=== PATIENT | female | born 1980 | race Caucasian/White ===

== ENCOUNTER 2019-08-26 01:48 | Day surgery (SDC) | payer OTHER, SELFPAY ==
[2019-08-21 09:41] VITALS: BMI 33.3
--- NOTE | 2019-08-26 08:34 | WPDANESEPPF ---
Anes - Initial Pre Proc Eval Procedure: Operation Date: 08/26/19 13:30 Proposed Procedures p Excision Right Axillary Mass - Luis Eduardo Martinez DO Date/Time: 08/26/19 08:34 Surgeon: Luis Eduardo Martinez DO Pre Op Diagnosis: 2 cm Right Axillary Mass Patient Data Age: 39 Gender: F Height: 1.65 m Weight: 90.72 kg Allergies Allergy/AdvReac Type Severity Reaction Status Date / Time sulfamethoxazole Allergy Intermediate HIVES Verified 08/23/19 14:15 surgical glue Allergy Severe swelling, Uncoded 08/23/19 14:15 rash, itching Home Medications Medication Instructions Recorded Confirmed Type No Home Medications 08/06/19 08/23/19 History Patient hx anesthesia problems: none Family hx anesthesia problems: none PMFSH Past Medical History Medical History (Updated 08/26/19 @ 08:35 by Anmol Caldwell MD) Mass of right axilla Migraine Obesity Surgical History Surgical History S/P S/P carpal tunnel release S/P hernia repair S/P laminectomy total disc arthroplasty ant. second level, cervical 2016 S/P tonsillectomy Social History Social History Smoking status: Never smoker Alcohol intake: current Anes - Eval Final PreProcedure Day of Procedure 08/26/19 08:34 Patient weight: obese Heart: regular rate and rhythm Lungs: clear to auscultation and normal air movement Airway: Mallampati scale class II Neurological: alert and oriented Last oral intake: >/= 8 hours ASA classification: II Emergent: no Anesthetic plan: proceed Anesthesia type and monitoring: general ETT Informed Consent: The patient's anesthetic plan and its attendant risks and benefits were discussed with the patient/family/POA. Questions were solicited and answers provided to the satisfaction of the patient/family/POA.
[2019-08-26] MEDS: LACTATED RINGERS 1,000 ML 30 ML IV CONT (12:20)
[2019-08-26 12:23] VITALS: BP 174/81; PULSE 82; RESP 20; TEMP 36.9; O2SAT 100
--- NOTE | 2019-08-26 13:36 | WPDHPUPDATE1 ---
History and Physical Update Update Date/Time: 08/26/19 13:36 History and Physical has been reviewed, including an updated exam of the patient. There are NO changes in the patient's condition. Risks, benefits, and alternatives have been discussed and questions answered. Patient agrees to proceed with procedure.
[2019-08-26] MEDS: ceFAZolin 2 GM/D5W 50 ML 2 GM/50 ML BAG IVPB (14:28)
[2019-08-26] MEDS: BUPIVACAINE/EPINEPHRINE 0.5% 30 ML VIAL 10 ML INFILTRATE (14:30)
--- NOTE | 2019-08-26 14:37 | P.OP_ITS ---
Procedure Note - Detailed Date of procedure: 08/26/19 Pre-op diagnosis: 2 cm Right Axillary Mass Post-op diagnosis: same Procedure performed: Excision 2cm right axillary mass Description of procedure: * Procedure as well as risks, benefits, and alternatives were discussed with the patient. Written consent was obtained and placed in chart prior to procedure. Time-out was done to confirm patient and procedure. IV sedation was then administered by the Anesthesia Department. Her right axillary region was prepped and draped sterile fashion using chlorhexidine prep. 1% lidocaine with epinephrine was infiltrated directly over the area of mass. A 3 cm incision was made over the mass in the right axilla using a 15 blade scalpel. Electrocautery was used for hemostasis and for careful dissection through the subcutaneous tissue. Superficial within the axillary contents, there appeared to be a lipoma that was corresponding to the area of the mass. This mass was carefully freed up using electrocautery and excised completely. The wound bed was then inspected and no further residual mass was noted. Hemostasis appeared adequate. The skin was then reapproximated using 4 0 nylon simple interrupted sutures. 4 x 4 gauze and Medipore tape were then applied. The patient was then awakened from anesthesia and transferred to recovery. Anesthesia: MAC and local (1% lidocaine with epi) Surgeon: Luis Eduardo Martinez DO Estimated blood loss (mL): 2 Pathology: yes (2 cm right axillary mass) Complications: No immediate complications Condition: stable Disposition: same day Findings: This is a 39-year-old woman who presented with a lump in her right axilla for the past several months. She states that this has changed in size, and it does cause intermittent pain and discomfort. She was placed on antibiotics, but the mass did not change in size. She has no wound openings or history of drainage from the area. A soft superficial subcutaneous mass was noted on exam. Discussions were made with the patient about treatment options, and decision was made to proceed with excision of 2 cm right axillary mass. 2 cm right axillary mass was excised. The mass appeared to be a lipoma within the superficial subcutaneous space. There did not appear to be any deeper masses or any lymphadenopathy. There is no cyst or skin abnormalities. Once the mass was completely excised, it was sent to the lab for pathology.
[2019-08-26 14:44] VITALS: BP 143/89; PULSE 90; RESP 16; O2SAT 96
[2019-08-26 15:15] VITALS: BP 140/85; PULSE 76; RESP 14
== END 2019-08-26 15:30 | disposition home or self-care (01) ==
PROVIDERS: PCP Internal Medicine; Visit Provider Surgery
PROC: (CPT 38525; principal; 2019-08-26 13:30)
DX: D17.21 Benign lipomatous neoplasm of skin and subcutaneous tissue of right arm (principal); E66.9 Obesity, unspecified; Z68.33 Body mass index [BMI] 33.0-33.9, adult
CPT/HCPCS: 24075; 88304; J0690; J2250; J2704; J3010; J7120

== ENCOUNTER 2020-12-11 16:37 | Outpatient (RCR) | payer OTHER, SELFPAY ==
--- NOTE | 2020-12-11 17:45 | PTOPEVAL ---
Thank you for referring Xena Tracey to [facility].? The patient is scheduled to be seen for therapy? ____x/week for ___ weeks. Please review, sign, date and return this plan of care MAYI. I agree with and certify that the following plan of care is medically necessary. Referring Physician Date Admitting Provider: Attending Provider: LACI PERRY Referring Provider: SHUKRI Outpatient Evaluation Start: 12/11/20 16:33 Freq: Status: Active Protocol: Document 12/11/20 16:45 ACR (Rec: 12/11/20 17:44 ACR [id number]) Therapy Assessment Status Assessment Status Assessment Status Evaluation Outpatient Past Medical History Neurological History Hx Migraine Yes Cardiovascular History Hx Cardiac Disorders No Significant History Respiratory History Hx Respiratory Disorders No Significant History Gastrointestinal History Hx Gastrointestinal Disorders No Significant History Genitourinary History Hx Genitourinary Disorders No Significant History Musculoskeletal History Hx Spinal Surgery Yes: 2 HERNIATED CERVICAL DISCS REPAIRED Hx Other Musculoskeletal Disorders Yes: CTR Hematological History Hx Hematological Disorders No Significant History Endocrine History Hx Endocrine Disorders No Significant History HEENT History Hx Tonsillectomy Yes Hx Ear Surgery Yes: BMT Hx Eye Surgery Yes: LASIK EYE SURGERY Hx Other HEENT Disorders Yes: NASAL POLYPS REMOVED Integumentary History Hx Other Skin Disorders Yes: RT AXILLARY MASS Reproductive History Hx Hysterectomy Yes Psychosocial History Hx Anxiety Yes Pain History History of Any Previous or Ongoing No Significant History Instance of Pain Anesthesia History Hx Other Anesthesia Reactions Yes: HIVES FOR MONTHS AFTER EVERY SURGICAL PROCEDURE Evaluation Information Problem Diagnosis cervical pain Onset 08/13/20 Subjective Information Patient states that she has Query Text:As Reported By Patient/ had neck pain in the past and Family she went to personal training it made it worse. The patient states she has been in tears because of her pain in the neck. She states that she has pins in her neck from herniated discs and two new bulging discs. Patient states she is having numbness and tingling down her hand especially in the middle
--- NOTE | 2020-12-25 10:35 | PCPTNOTE ---
On 12/25/20, the student, [ Myrna Chauhan, [facility] provided care and completed [employer] documentation on this patient. I have reviewed the student's documentation and agree with the findings.
--- NOTE | 2020-12-28 11:40 | PCPTNOTE ---
On 12/28/20, the student, [Myrna Chauhan, [facility] provided care and completed [employer] documentation on this patient. I have reviewed the student's documentation and agree with the findings.
--- NOTE | 2021-01-07 10:33 | PCPTNOTE ---
On 01/07/21, the student, [Sivan Strange, SPT], provided care and completed [employer] documentation on this patient. I have reviewed the student's documentation and agree with the findings.
--- NOTE | 2021-01-19 09:54 | PTOPEVAL ---
Thank you for referring Xena Tracey to [facility].? The patient is scheduled to be seen for therapy? ____x/week for ___ weeks. Please review, sign, date and return this plan of care MAYI. I agree with and certify that the following plan of care is medically necessary. Referring Physician Date Admitting Provider: Attending Provider: LACI PERRY Referring Provider: SHUKRI Outpatient Evaluation Start: 12/11/20 16:33 Freq: Status: Active Protocol: Document 01/19/21 08:52 ACR (Rec: 01/19/21 09:54 ACR [id number]) Therapy Assessment Status Assessment Status Assessment Status Discharge Outpatient Past Medical History Neurological History Hx Migraine Yes Cardiovascular History Hx Cardiac Disorders No Significant History Respiratory History Hx Respiratory Disorders No Significant History Gastrointestinal History Hx Gastrointestinal Disorders No Significant History Genitourinary History Hx Genitourinary Disorders No Significant History Musculoskeletal History Hx Spinal Surgery Yes: 2 HERNIATED CERVICAL DISCS REPAIRED Hx Other Musculoskeletal Disorders Yes: CTR Hematological History Hx Hematological Disorders No Significant History Endocrine History Hx Endocrine Disorders No Significant History HEENT History Hx Tonsillectomy Yes Hx Ear Surgery Yes: BMT Hx Eye Surgery Yes: LASIK EYE SURGERY Hx Other HEENT Disorders Yes: NASAL POLYPS REMOVED Integumentary History Hx Other Skin Disorders Yes: RT AXILLARY MASS Reproductive History Hx Hysterectomy Yes Psychosocial History Hx Anxiety Yes Pain History History of Any Previous or Ongoing No Significant History Instance of Pain Anesthesia History Hx Other Anesthesia Reactions Yes: HIVES FOR MONTHS AFTER EVERY SURGICAL PROCEDURE Evaluation Information Problem Diagnosis cervical pain Onset 08/13/20 Subjective Information Patient states she isn't sure Query Text:As Reported By Patient/ if she is feeling better. She Family states that some days she is getting better and other days it is in so much pain. The patient states that at night she is grabbing her neck or her shoulder, but in the morning she is okay. She states that she feels she can turn her neck further, she can lift her arm up over her head longer before it starts to
== END 2021-01-19 13:51 | disposition home or self-care (01) ==
LOC: CHSPT 16:37
DX: M54.2 Cervicalgia (principal)
CPT/HCPCS: 97014; 97110; 97140; 97161; G0283

== ENCOUNTER → 2021-03-10 11:01 | Outpatient (CLI) | payer OTHER, SELFPAY ==
--- NOTE | ~2021-03-10 | CT_ITS ---
EXAMINATION: CT abdomen pelvis w con INDICATION: Lower abdominal pain TECHNIQUE: Computed tomographic images of the abdomen and pelvis were obtained after the administrati on of 100 cc of Omnipaque 350 intravenous contrast. The dose-length product (DLP) was 955.27 mGy-cm. Automated exposure control and iterative reconstruction technique were employed. COMPARISON: None available FINDINGS: Minimal dependent atelectasis is present in the lung bases. The heart size is normal. The l iver is diffusely low in attenuation when compared with the spleen, consistent with hepatic steatosis . There is a small sliding hiatal hernia. The spleen, pancreas, gallbladder, and adrenal glands are n ormal. The right kidney is unremarkable. There is a 1.7 cm cyst of the left kidney. No pathologically enlarged abdominal or pelvic lymph nodes are identified. There is no free intraperitoneal gas or juan pablo dence of bowel obstruction. Colonic diverticulosis is present without evidence of diverticulitis. The appendix is normal. There is mild lumbar spondylosis. IMPRESSION: 1. No CT correlate for the patient's symptoms. Reviewed, dictated and finalized at location B.
[2021-03-10 11:40] LABS: Estimated Glomerular Filt Rate > 60
== END ==
PROVIDERS: PCP Physician Assistant Medical; Visit Provider Physician Assistant Medical
DX: R10.9 Unspecified abdominal pain (principal)
CPT/HCPCS: 74177; Q9967

== ENCOUNTER 2021-04-20 03:13 | Day surgery (SDC) | payer OTHER, SELFPAY ==
[2021-04-02 14:15] VITALS: BMI 33.3
[2021-04-20 08:59] VITALS: BP 167/105; PULSE 94; RESP 20; TEMP 36.6; O2SAT 96; BMI 33.5
[2021-04-20] MEDS: LACTATED RINGERS 1,000 ML 150 ML IV CONT (09:17)
--- NOTE | 2021-04-20 09:17 | P.PNAN_ITS ---
Anes - Initial Pre Proc Eval Procedure: Operation Date: 04/20/21 10:15 Proposed Procedures p Esophagogastroduodenoscopy & Colonoscopy - Patrick Garland MD Date/Time: 04/20/21 09:17 Surgeon: Patrick Garland MD Pre Op Diagnosis: change in bowel habits, nausea, vomitting Patient Data Age: 41 Gender: F Height: 1.65 m Weight: 91.3 kg Last Vital Signs Temp 36.6 C 04/20/21 08:59 Pulse 94 04/20/21 08:59 Resp 20 04/20/21 08:59 BP 167/105 H 04/20/21 08:59 Pulse Ox 96 04/20/21 08:59 Allergies Allergy/AdvReac Type Severity Reaction Status Date / Time adhesive Allergy Severe Swelling Verified 04/20/21 08:58 sulfamethoxazole Allergy Intermediate HIVES Verified 04/20/21 08:58 surgical glue Allergy Severe swelling, Uncoded 04/02/21 14:21 rash, itching Home Medications Medication Instructions Recorded Confirmed Type irbesartan 300 mg tablet 300 mg PO DAILY 03/18/21 04/20/21 History Patient hx anesthesia problems: none Family hx anesthesia problems: none Results Review: All pre-operative results and documents have been reviewed as part of the pre-operative evaluation. [facility] Past Medical History Medical History HTN (hypertension) Mass of right axilla Migraine Obesity Surgical History Surgical History History of excision of mass excision of 2cm axillary right mass 08/26/2019 S/P S/P carpal tunnel release S/P hernia repair S/P laminectomy total disc arthroplasty ant. second level, cervical 2016 S/P tonsillectomy Family History Family History Father Diabetes mellitus Hypertension Mother Diabetes mellitus Hypertension Grandparent Breast cancer Other Cerebrovascular accident Family history of allergic disorder Family history of malignant neoplasm Social History Social History Smoking packs per day: 0.5 Smoking cigarettes per day: 10.0 Years smoked: 14 Smoking pack-years: 7.00 Smoking status: Current every day smoker Tobacco type: cigarettes Alcohol intake: current Living arrangements: with family Spiritual care concerns: No Anes - Eval Final PreProcedure Day of Procedure 04/20/21 09:17 Patient weight: obese Heart: regular rate and rhythm Lungs: clear to auscultation Airway: Mallampati scale class II Neurological: alert and oriented Last oral intake: >/= 8 hours ASA classification: II Emergent: no Anesthetic plan: proceed Anesthesia type and monitoring: general GIVS and standard monitoring Results Review: All pre-operative results and documents have been reviewed as part of the pre-operative evaluation. Informed Consent: The patient's anesthetic plan and its attendant risks and benefits were discussed with the patient/family/POA. Questions were solicited and answers provided to the satisfaction of the patient/family/POA.
[2021-04-20 09:23] VITALS: BP 134/94
--- NOTE | 2021-04-20 09:49 | PM.HPGS ---
History of Present Illness History of Present Illness Consent: Risks, benefits, and alternatives have been discussed and questions answered. Patient agrees to proceed with procedure. Chief complaint: change in bowel habits, nausea, vomitting Narrative: Xena Tracey is a 41 year old female with chronic pain in llq but recently with change in bowel habits (loose stools), also nausea- recently stopped using daily ibuprofen but still drinking at bedtime. Never had scopes. Review of Systems Constitutional: Constitutional: Denies headache(s) and Denies weakness Eyes: Eyes: Denies blurry vision ENT: Reports Normal hearing present, Denies headache(s) and Denies neck pain Cardiovascular: Cardiovascular: Denies chest pain and Denies dyspnea Respiratory: Respiratory: Denies dyspnea Gastrointestinal: Gastrointestinal: Reports no additional gastrointestinal complaints Genitourinary: Genitourinary: Denies dysuria Musculoskeletal: Musculoskeletal: Denies neck pain Integumentary/Breasts: Skin/Breast: Denies dry skin Neurologic: Reports Normal hearing present, Denies headache(s) and Denies weakness Psychiatric: Psychiatric: Denies anxiety Endocrine: Endocrine: Denies change in body appearance Hematologic/Lymphatic: Hematologic/Lymphatic: Denies easy bleeding Allergic/Immunologic: Allergic/Immunologic: Denies urticaria PMFSH Past Medical History Medical History (Updated 04/20/21 @ 09:51 by Patrick Garland MD) Bowel habit changes Chronic LLQ pain HTN (hypertension) Mass of right axilla Migraine Nausea Obesity Surgical History Surgical History History of excision of mass excision of 2cm axillary right mass 08/26/2019 S/P S/P carpal tunnel release S/P hernia repair S/P laminectomy total disc arthroplasty ant. second level, cervical 2016 S/P tonsillectomy Family History Family History Father Diabetes mellitus Hypertension Mother Diabetes mellitus Hypertension Grandparent Breast cancer Other Cerebrovascular accident Family history of allergic disorder Family history of malignant neoplasm Social History Social History Smoking packs per day: 0.5 Smoking cigarettes per day: 10.0 Years smoked: 14 Smoking pack-years: 7.00 Smoking status: Current every day smoker Tobacco type: cigarettes Alcohol intake: current Living arrangements: with family Spiritual care concerns: No Meds Home Medications and Allergies Home Medications Medication Instructions Recorded Confirmed Type irbesartan 300 mg tablet 300 mg PO DAILY 03/18/21 04/20/21 History Allergies Allergy/AdvReac Type Severity Reaction Status Date / Time adhesive Allergy Severe Swelling Verified 04/20/21 08:58 sulfamethoxazole Allergy Intermediate HIVES Verified 04/20/21 08:58 surgical glue Allergy Severe swelling, Uncoded 04/02/21 14:21 rash, itching Vital Signs Vital Signs - 24 hr 04/20/21 08:59 04/20/21 09:23 Temperature 97.8 F Pulse Rate 94 Respiratory Rate 20 Blood Pressure 167/105 H 134/94 H Pulse Oximetry 96 Exam Const: General: comfortable and no acute distress HENMT: General nose exam: Normal nares present Eyes: General: appearance normal, both eyes and all related structures Neck: Neck: no JVD Resp: Auscultation: clear to auscultation bilaterally Cardio: Rate: regular rate Rhythm: regular rhythm GI: Inspection: non-distended GI Palp: Yes Soft to palpation Skin: General skin exam: normal color Neuro: General: gait normal Speech: normal speech Extrem: General: normal to inspection Psych: Mental Status: mental status grossly normal Assessment and Plan Assessment and plan (1) Chronic LLQ pain: Code(s): R10.32 - Left lower quadrant pain; G89.29 - Other chronic pain
[2021-04-20] MEDS: BENZOCAINE (*SP) 60 ML SPRAY CAN (HURRICAINE) 1 SPRAY MUCOUS MEM (10:04)
[2021-04-20 10:22] VITALS: BP 128/93; PULSE 97; RESP 27; O2SAT 100
[2021-04-20 10:32] VITALS: BP 118/63; PULSE 95; RESP 17; O2SAT 100
[2021-04-20 10:42] VITALS: BP 121/67; PULSE 82; RESP 23; O2SAT 100
== END 2021-04-20 10:46 | disposition home or self-care (01) ==
PROVIDERS: PCP Physician Assistant Medical; Visit Provider Internal Medicine Gastroenterology
PROC: 0DJ08ZZ Inspection of Upper Intestinal Tract, Via Natural or Artificial Opening Endoscopic (ICD-10-PCS; CPT 43235; principal; 2021-04-20 10:15)
DX: R10.32 Left lower quadrant pain (principal); R19.4 Change in bowel habit; R11.0 Nausea; D12.2 Benign neoplasm of ascending colon; K29.50 Unspecified chronic gastritis without bleeding; K57.30 Diverticulosis of large intestine without perforation or abscess without bleeding; I10 Essential (primary) hypertension; G89.29 Other chronic pain; F17.210 Nicotine dependence, cigarettes, uncomplicated
CPT/HCPCS: 45385; 45380; 43239; 88305; J2704; J7120

== ENCOUNTER 2023-02-26 10:25 | Emergency (ER) | payer OTHER, SELFPAY ==
--- NOTE | ~2023-02-26 | XR_ITS ---
XR finger 2nd LT min 2V DATE: 02/26/2023 10:45 INDICATION: Finger shut in door. Distal pain. TECHNIQUE: 4 views COMPARISON: None FINDINGS: No fracture or dislocation, periosteal reaction or bone destruction, radiopaque soft tissue foreign body or subcutaneous emphysema. Joint spaces are preserved. IMPRESSION: Negative Reviewed, dictated and finalized at location A. IMPRESSION: Negative
[2023-02-26 10:37] VITALS: BP 152/96; PULSE 86; RESP 16; TEMP 36.6; O2SAT 100
[2023-02-26 10:39] VITALS: BP 152/96; PULSE 86; RESP 16; TEMP 36.6; O2SAT 100
--- NOTE | 2023-02-26 10:54 | ED.UPPEXIN ---
HPI - Extremity Injury (Upper) General Chief Complaint: Extremity Injury, Upper Stated Complaint: INJURED FINGER Time Seen by Provider: 02/26/23 10:54 Source: patient Mode of arrival: ambulatory Limitations: no limitations History of Present Illness HPI narrative: 43 yo F presents with c/o throbbing pain to L index finger. States she slammed L index finger to heavy door yesterday. States throbbed all night and could not sleep . ROM and distal NV intact. Small subungual hematoma noted. All systems reviewed and negative except as noted above. Related Data Allergies Allergy/AdvReac Type Severity Reaction Status Date / Time adhesive Allergy Severe Swelling Verified 02/26/23 10:38 sulfamethoxazole Allergy Intermediate HIVES Verified 02/26/23 10:38 surgical glue Allergy Severe swelling, Uncoded 02/26/23 10:38 rash, itching Review of Systems Review of Systems: CONSTITUTIONAL: Denies fever, chills, or sweats. EYES: Denies visual changes, redness, or discharge. ENT: Denies rhinorrhea, congestion, sore throat, or otalgia. CARDIOVASCULAR: Denies chest pain, palpitations, or edema. RESPIRATORY: Denies cough or dyspnea. GASTROINTESTINAL: Denies abdominal pain, nausea, vomiting, or diarrhea. GENITOURINARY: Denies dysuria or hematuria. SKIN: Denies rash or itching. MUSCULOSKELETAL: Denies back pain, joint pain, or myalgia. Reports pain to distal aspect of right index finger. NEUROLOGIC: Denies headache, numbness, or weakness. PSYCHIATRIC: Denies anxiety or depression. All other systems reviewed are negative, except as documented in HPI. [facility] Past Medical History Medical History Bowel habit changes Chronic LLQ pain HTN (hypertension) Mass of right axilla Migraine Nausea Obesity Surgical History Surgical History H/O: hysterectomy History of excision of mass excision of 2cm axillary right mass 08/26/2019 S/P S/P carpal tunnel release S/P hernia repair S/P laminectomy total disc arthroplasty ant. second level, cervical 2016 S/P tonsillectomy Family History Family History Father Diabetes mellitus Hypertension Mother Diabetes mellitus Hypertension Grandparent Breast cancer Other Cerebrovascular accident Family history of allergic disorder Family history of malignant neoplasm Social History Social History Smoking packs per day: 0.5 Smoking cigarettes per day: 10.0 Years smoked: 14 Smoking pack-years: 7.00 Smoking status: Current every day smoker Tobacco type: cigarettes Alcohol intake: current Living arrangements: with family Spiritual care concerns: No Comments At time of signature, agree with nursing past medical, surgical, social and family history. There is no relevant family history pertinent to the presenting complaint. Exam Narrative: GENERAL: This is a well-nourished, well-developed patient, in no apparent distress. HEAD: normocephalic, atraumatic. EYES: PERRL. Sclera clear/white. Vision is grossly intact. EARS: External ears normal NOSE: External nose normal NECK: Neck supple, non-tender without lymphadenopathy, masses or thyromegaly. CARDIOVASCULAR: Regular rate and rhythm without murmurs, gallops, or rubs. RESPIRATORY: Clear to auscultation. Breath sounds equal bilaterally. No wheezes, rales, or rhonchi. SKIN: warm, Dry, intact with no suspicious lesions or rash, good texture and turgor. NEURO: awake, alert, and oriented to person, place and time. There were no obvious focal neurologic abnormalities. EXTREMITIES: No joint tenderness, effusion. tenderness on palpation to distal phalanx L index finger with tenderness to subungual hematoma. subungual hematoma to about 1/4 of nail. Nail otherwise normal. Course
== END 2023-02-26 11:10 | disposition home or self-care (01) ==
PROVIDERS: Emergency Provider Nurse Practitioner Family; PCP Physician Assistant Medical
DX: S60.122A Contusion of left index finger with damage to nail, initial encounter (principal); X58.XXXA Exposure to other specified factors, initial encounter; I10 Essential (primary) hypertension; F17.210 Nicotine dependence, cigarettes, uncomplicated
CPT/HCPCS: 29130; 73140; 99213; G0463

== ENCOUNTER 2023-09-26 07:33 | Outpatient (CLI) | payer OTHER, SELFPAY ==
--- NOTE | ~2023-09-26 | MMUS_ITS ---
EXAMINATION: MM diagnostic shanika RT w naeem, US breast RT complete HISTORY: Follow-up from outside mammogram performed 02/13/2023 TECHNIQUE: Full field and spot ML, MLO and CC 3-D tomosynthesis images of the right breast were perfo rmed and synthetic 2-D images were generated. CAD analysis was submitted and interpreted. High resolu tion complete right breast ultrasound examination including all 4 quadrants and subareolar area was p erformed. COMPARISON: [place], [place] 02/13/2023, 10/14/2021, 07/24/2019 screening ma mmogram examinations BREAST PARENCHYMAL COMPOSITION: The breasts are extremely dense, which lowers the sensitivity of mamm ography. FINDINGS: MAMMOGRAPHIC FINDINGS: Extremely dense bilaterally nodular fibroglandular stroma of the right breast may obscure small raissa s. No suspicious mass or architectural distortion or any malignant calcification, skin thickening or retraction is detected. ULTRASOUND: There are multiple scattered circumscribed circular and oval subcentimeter cysts and hypoechoic lesio ns, non with suspicious shadowing or irregularity or abnormal vascularity. These all appear benign. N o suspicious mass or shadowing is evident. IMPRESSION: 1. Benign findings 2. Routine annual mammographic screening is recommended BI-RADS Category 2: Benign finding(s). Reviewed, dictated and finalized at location A. IMPRESSION: 1. Benign findings 2. Routine annual mammographic screening is recommended BI-RADS Category 2: Benign finding(s).
== END 2023-09-26 07:34 ==
LOC: MICIMG 07:34
PROVIDERS: PCP Physician Assistant Medical; Visit Provider Physician Assistant Surgical
DX: R92.8 Other abnormal and inconclusive findings on diagnostic imaging of breast (principal); N63.10 Unspecified lump in the right breast, unspecified quadrant
CPT/HCPCS: 76641; 77061; 77065; G0279

== ENCOUNTER 2024-05-08 10:25 | Outpatient (CLI) | payer OTHER, SELFPAY ==
--- NOTE | ~2024-05-08 | MM_ITS ---
EXAMINATION: MM screening shanika BI w naeem HISTORY: Screening TECHNIQUE: Craniocaudal and mediolateral oblique 3-D tomosynthesis images were obtained and synthetic 2-D images were generated. CAD analysis was submitted and interpreted. COMPARISON: Comparison to multiple prior studies sequentially, with oldest reviewed study dated 07/24. BREAST PARENCHYMAL COMPOSITION: Dense: The breasts are extremely dense, which lowers the sensitivity of mammography.. FINDINGS: There are new asymmetries in the right breast on MLO view. The left breast is stable withou t evidence for malignancy. IMPRESSION: 1. New right breast asymmetries. 2. Additional mammographic views and possible breast ultrasound are recommended. BI-RADS Category 0: Incomplete: Needs additional imaging evaluation. Reviewed, dictated and finalized at location B. ERT PIANIST IMPRESSION: 1. New right breast asymmetries. 2. Additional mammographic views and possible breast ultrasound are recommended . BI-RADS Category 0: Incomplete: Needs additional imaging evaluation.
== END 2024-05-08 10:26 | disposition home or self-care (01) ==
LOC: MICIMG 10:26
PROVIDERS: PCP Physician Assistant Medical; Visit Provider Physician Assistant Medical
DX: Z12.31 Encounter for screening mammogram for malignant neoplasm of breast (principal); R92.8 Other abnormal and inconclusive findings on diagnostic imaging of breast
CPT/HCPCS: 77063; 77067

== ENCOUNTER 2024-05-16 08:41 | Outpatient (CLI) | payer OTHER, SELFPAY ==
--- NOTE | ~2024-05-16 | MM_ITS ---
EXAMINATION: MM diagnostic shanika RT w naeem HISTORY: Right breast asymmetry TECHNIQUE: Additional 3-D tomosynthesis images of the right breast were performed and synthetic 2-D i mages were generated. CAD analysis was submitted and interpreted. COMPARISON: 05/08/2024, 09/26/2023, 02/13/2023 BREAST PARENCHYMAL COMPOSITION:Dense: The breasts are extremely dense, which lowers the sensitivity o f mammography. FINDINGS: The areas of asymmetry effaced with spot compression. No persistent mass lesion or distorti on seen. No suspicious microcalcifications. IMPRESSION: No mammographic evidence for malignancy. BI-RADS Category 1: Negative Reviewed, dictated and finalized at location M. CIPAL QUALITY ENGINEER
== END 2024-05-16 08:42 | disposition home or self-care (01) ==
LOC: CHSIMG 08:41
PROVIDERS: PCP Physician Assistant Medical; Visit Provider Physician Assistant Medical
DX: R92.8 Other abnormal and inconclusive findings on diagnostic imaging of breast (principal)
CPT/HCPCS: 77061; 77065; G0279

== ENCOUNTER 2024-08-15 07:43 | Outpatient (CLI) | payer OTHER, SELFPAY ==
--- NOTE | ~2024-08-15 | MR_ITS ---
MR breast BI wo/w con 08/15/2024 12:20 TOP PRECIPITATOR OPERATOR HELPER INDICATION: Dense breasts. Family history of breast cancer. TECHNIQUE: MRI of the breasts perform using standard protocol pre-and post IV contrast with the follo wing sequences: Axial T2 STIR, axial T1, axial vibrant T1 with fat suppression precontrast and multip hasic postcontrast. 20 cc MultiHance administered intravenously. COMPARISON: Comparison to multiple prior studies sequentially, with oldest reviewed study dated 09/25. FINDINGS: Right breast: The breasts are extremely dense. There are no abnormalities on the precontrast sequenc es. There are multiple breast cysts. There is minimal background parenchymal enhancement. No enhanci ng lesions following contrast administration. No areas of enhancement meeting threshold criteria on CAD analysis. No evidence of signal abnormalities in the axillary or internal mammary node distribut ions. LEFT BREAST: No signal abnormalities on precontrast sequences. There are multiple breast cysts. Ther e is minimal background parenchymal enhancement. No enhancing lesions following contrast administra tion. No areas of enhancement meeting threshold criteria on CAD analysis. No evidence of signal ab normalities in the axillary or internal mammary node distributions.] IMPRESSION: 1: No evidence for malignancy in either breast. Benign findings Routine yearly screening mammogram and regular clinical breast examination are recommended. BI-RADS CATEGORY 2 - BENIGN FINDINGS Reviewed, dictated and finalized at location B. PRECIPITATOR OPERATOR HELPER
--- OUTSIDE RECORDS SUMMARY | 2024-08-15 07:47 | XMS_ITS | Clinical Summary ---
Author Organization [address] Address [address] [place] [id number] Care Team Providers Care Microsoft Infrastructure Consultant Name Role Phone Unknown, Notinfile Primary Care Provider Unavail able Allergies Active Allergy Reactions Criticality Noted Date Comments Latex Unknown 02/24/2024 Sulfa (Sulfonamide Antibiotics) Hives Medium 07/05 Medications No known medications Active Problems No known active problems Social History Tobacco Use Types Packs/Day Years Used Date Smoking Tobacco: Never Assessed Comments Unknown Sex and Gender Information Value Date Recorded Sex Assigned at Not on file Legal Sex 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 Gender Identity Not on file Sexual Orientation Not on file Obstetrics History Last Filed Vital Signs Vital Sign Reading Time Taken Comments Blood Pressure 155/95 02/24/2024 8:39 AM CDT Pulse 77 02/24/2024 8:39 AM CDT Temperature 36.7 C (98 F) 02/24/2024 8:39 AM CDT Respiratory Rate 18 02/24/2024 8:39 AM CDT Oxygen Saturation 99% 02/24/2024 8:39 AM CDT Inhaled Oxygen Concentration - - Weight 61.2 kg (135 lb) 02/24/2024 8:39 AM CDT Height 163.8 cm (5' 4.5 ) 02/24/2024 8:39 AM CDT Body Mass Index 22.81 02/24/2024 8:39 AM CDT Plan of Treatment Health Maintenance Due Date Last Done Comments Cervical Cancer Screening 1980 Depression Screening 1980 Hepatitis C Screening 1980 DTaP/Tdap/Td Vaccine (1 - Tdap) 01/17/1991 Varicella Vaccines (1 of 2 - 13+ 2-dose series) 01/17/1993 Hepatitis B Screening 01/17/1998 Regular Well Visit/Exam 18-64 01/17/1998 Breast Cancer Screening-Mammogram 02/14/2024 02/13/2023, 02/13/2023, 10/14/2021, Additional history exists Covid-19 Vaccine ( season) 2024 07/16/2021, 10/11/2020, 09/18/2020 Influenza Vaccine (#1) 2024 HPV Vaccines Aged Out No longer eligi ble based on patient's age to complete this topic Pneumococcal vaccine <65 Aged Out No longer eligible based on patient's age to complete this topic Insurance [facility] CMR Care Teams Microsoft Infrastructure Consultant Relationship Specialty Start Date End Date Unknown, Notinfile PCP - General 02/24/24
--- OUTSIDE RECORDS SUMMARY | 2024-08-15 07:47 | XMS_ITS | Referral Summary ---
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
--- OUTSIDE RECORDS SUMMARY | 2024-08-15 07:47 | XMS_ITS | Clinical Summary ---
Author Organization [facility] Address [address] [place] [address] Phone Care Team Providers Care Physical Fitness Trainer Name Role Phone Ayaan Lucio MD Primary Care Provider [phone] Allergies No known active allergies Medications cyanocobalamin 1000 MCG Tablet Take 1,000 mcg by mouth daily. Active Cholecalcifero l (VITAMIN D-3 SUPER STRENGTH) 2000 UNIT Tablet Take 1 Tab by mouth daily. Active Ibuprofen-Diph enhydramine Cit (ADVIL PM PO) Take 1 Tab by mouth nightly. Active acetaminophen (TYLENOL) 500 MG Tablet Take 1 Tab by mouth every 6 hours as needed for Pain or Fever (for temperature greater than 100.4 F). Do not exceed 3000 mg of acetaminophen in 24 hour from all sources. 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 Family History Medical History Relation Name Comments Asthma Brother Diabetes Father Cancer Maternal Grandfather skin Heart Attack Maternal Grandfather Hypertension Maternal Grandfather Osteoarthritis Maternal Grandfather Stroke Maternal Grandfather Asthma Maternal Grandmother Heart Attack Maternal Grandmother Osteoarthritis Maternal Grandmother Stroke Maternal Grandmother Asthma Mother Diabetes Mother Osteoarthritis Mother Relation Name Status Comments Brother Father Alive Maternal Grandfather Maternal Grandmother Mother Alive Social History Tobacco Use Types Packs/Day Years Used Date Smoking Tobacco: Former Cigarettes Q uit: 02/13/2015 Smokeless Tobacco: Never Alcohol Use Standard Drinks/Week Comments Yes 0 (1 standard drink = 0.6 oz pur e alcohol) vodka - socially Comments Unknown Sex and Gender Information Value Date Recorded Sex Assigned at Not on file Legal Sex Female 12:35 AM CDT Gender Identity Not on file Sexual Orientation Not on file Last Filed Vital Signs Vital Sign Reading Time Taken Comments Blood Pressure 110/80 07/23/2015 2:15 PM RN TRIAGE Pulse 73 07/23/2015 2:15 PM RN TRIAGE Temperature 36.1 C (97 F) 07/23/2015 2:15 PM RN TRIAGE Respiratory Rate 16 07/23/2015 2:15 PM RN TRIAGE Oxygen Saturation 99% 07/23/2015 2:15 PM RN TRIAGE Inhaled Oxygen Concentration - - Weight 70.8 kg (156 lb) 07/16/2015 3:13 PM RN TRIAGE Height 165.1 cm (5' 5 ) 07/16/2015 3:13 PM RN TRIAGE Body Mass Index 25.96 07/16/2015 3:13 PM RN TRIAGE Plan of Treatment Health Maintenance Due Date Last Done Comments Hepatitis C Virus (HCV) Screening 1980 TdaP Immunization 1980 Hepatitis B Immunization (1 of 3 - 19+ 3-dose series) 01/17/1999 Discussion re Starting/Frequency of Mammograms 2020 Influenza Immunization (#1) 2024 SARS-COV-2 Immunization ( season) 2024 07/16/2021, 10/11/2020, 09/18/2020 Respiratory Syncytial Virus (RSV) Immunization (Adult) (1 - 1-dose 75+ series) 01/17/2055 Meningococcal Immunization (ACWY) Aged Out No longer eligible b ased on patient's age to complete this topic Pneumococcal Immunization Combined Aged Out No longer eligible b ased on patient's age to complete this topic Rotavirus Immunization Aged Out No lo nger eligible based on patient's age to complete this topic Care Teams Physical Fitness Trainer Relationship Specialty Start Date End Date Ayaan Lucio MD [address] [place] [id number] PCP - General Internal Medicine 07/14/15
--- OUTSIDE RECORDS SUMMARY | 2024-08-15 07:47 | XMS_ITS | Clinical Summary ---
Author Organization [facility] Address [address] [place] [id number] Care Team Providers Care Hand Kiss Setter Name Role Phone Radha Baez Refugio [facility] Primary Care Provider + Allergies Active Allergy Reactions Criticality Noted Date Comments Sulfa Antibiotics Hives 08/02/2019 Medications buPROPion SR (WELLBUTRIN SR) 150 MG 12 hr tablet Take 150 mg by mouth 2 (two) times daily. 05/16/2022 Active irbesartan (AVAPRO) 300 MG tablet Take 300 mg by mouth daily. 05/16/2022 Active valACYclovir (VALTREX) 1 g tablet TAKE 2 TABLETS BY MOUTH EVERY 12 HOURS FOR 1 DAY NEEDED FOR FEVER BLISTER 07/19/2021 Active azithromycin (ZITHROMAX Z-GABBY) 250 MG tabletIndication s:Upper respiratory tract infection, unspecified type Take 2 tablets by mouth on day one then 1 daily for four days. 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 Family History Medical History Relation Comments Hypertension Father Breast Cancer Maternal Aunt not sure on age Hypertension Mother Breast Cancer Paternal Aunt not sure on age Breast Cancer Sister Relation Status Comments Father Alive Maternal Aunt Alive Mother Alive Paternal Aunt Alive Sister Social History Tobacco Use Types Packs/Day Years Used Date Smoking Tobacco: Never Smokeless Tobacco: Never Tobacco Cessation:Counseling Given: No Alcohol Use Standard Drinks/Week Comments Yes 0 (1 standard drink = 0.6 oz pur e alcohol) Comments No Sex and Gender Information Value Date Recorded Sex Assigned at Not on file Legal Sex Female 8:30 PM CDT Gender Identity Not on file Sexual Orientation Not on file Last Filed Vital Signs Vital Sign Reading Time Taken Comments Blood Pressure 150/91 10/30/2023 9:33 AM CDT Pulse 70 10/30/2023 9:33 AM CDT Temperature 36.6 C (97.9 F) 10/30/2023 9:33 AM CDT Respiratory Rate 16 10/30/2023 9:33 AM CDT Oxygen Saturation 99% 10/30/2023 9:33 AM CDT Inhaled Oxygen Concentration - - Weight 61.7 kg (136 lb) 10/30/2023 9:33 AM CDT Height 166.4 cm (5' 5.5 ) 10/30/2023 9:33 AM CDT Body Mass Index 22.29 10/30/2023 9:33 AM CDT Plan of Treatment Health Maintenance Due Date Last Done Comments Cervical Cancer Screening Pa p Smear (Age 30 to 64) Every 3 Years 1980 Annual Physical 01/17/1983 Hepatitis C 01/17/1998 DTaP, Tdap and Td Vaccines ( 1 - Tdap) 01/17/1999 Hepatitis B Vaccines (1 of 3 - 19+ 3-dose series) 01/17/1999 Cervical Cancer Screening Pa p with HPV Testing (Age 30 to 64) Every 5 Years 01/17/2010 Cervical Cancer Screening wi th HPV 01/17/2010 COVID-19 Vaccine (2023-2 5 season) 2024 07/16/2021, 10/11/2020, 09/18/2020 Influenza Adult (#1) 2024 PHQ-2 (Physician [place]) 07/03/2024 Mammogram Screening 02/13/2025 02/13/2023, 10/14/2021, 07/24/2019 HPV Vaccines Aged Out No longer eligi ble based on patient's age to complete this topic Meningococcal B Vaccine Aged Out No l onger eligible based on patient's age to complete this topic Meningococcal Vaccine Aged Out No mark kristina eligible based on patient's age to complete this topic Pneumococcal Vaccine: Pediatrics (0 to 5 Years) and At-Risk Patients (6 to 64 Years) Aged Out No longer eligible b ased on patient's age to complete this topic RSV Immunizations Under 20 Months Aged Out No longer eligible b ased on patient's age to complete this topic Procedures Procedure Name Priority Date/Time Associated Diagnosis Comments MG NORM STEWART STAT 02/13/2023 1:24 PM CDT Unspecified lump in the right breast, unspecified quadrant from Last 3 Months or Most Recently Relevant to Health Maintenance Results * MG NORM [place]pperson ASHLIE BILAT DIGI (02/13/2023 1:24 PM CDT) Anatomical Region Laterality Modality Breast Bilateral Mammography 02/13/2023 1:54 PM CDT Narrative 02/13/2023 1:56 PM CDT Examination: Bilateral 3D diagnostic mammogram and right breast ultrasound. [id number] Reason For Exam: lump Palpable abnormality in the right breast for one week. Benign right biopsy 2019. Breast cancer in a sister at age 50. No personal history of breast cancer. Comparison: Mammograms from 10/14/2021 07/24/2019 Technique: Bilateral 3D digital diagnostic mammography and right breast ultrasound was performed. This study was read with the assistance of a computer-aided detection system. Tissue density: The breast tissue is heterogeneously dense, which may obscure small masses. Findings: Benign rounded calcification in the left breast. Overall parenchymal pattern unchanged from the prior studies. Benign axillary lymph nodes again seen. With spot compression imaging in the area of concern in the upper outer right breast there is no persisting underlying asymmetry or mass. Subsequent ultrasound evaluation is performed of the same area at 10:00 position in the right breast at 5 cm from the nipple is seen a 11 x 16 x 6 mm wider than tall hypoechoic lesion with posterior acoustic enhancement and no internal vascularity. Some heterogeneous internal echoes are noted. This is a complex cyst. =====IMPRESSION:===== Complex cyst right breast 10:00 position. Assessment: ACR BI-RADS 3 - PROBABLY BENIGN FINDING(S) - SHORT INTERVAL FOLLOW-UP SUGGESTED Recommendation: 1:Short interval follow-up in 6 months. Right COMMENTS: Please repeat diagnostic right breast mammogram and ultrasound in 6 months for reevaluation of complex cyst. Examination: Breast ultrasound Findings: See combined report above. Comments: Ordered By: EVETTE TROTTER Interpreted By: Fermin Méndez MD, 02/13/2023 1:54 PM us Evette Trotter BUSINESS PROCESS MODELER MAMMO Final Resul t from Last 3 Months or Most Recently Relevant to Health Maintenance Insurance [address] [place] [address] [employer] Care Teams Hand Kiss Setter Relationship Specialty Start Date End Date Radha Baez, BUSINESS PROCESS MODELER-BC [id number], [address] [place] [address] PCP - General Nurse Practitioner Family 11/07/23
== END 2024-08-15 07:44 | disposition home or self-care (01) ==
PROVIDERS: PCP Physician Assistant Medical; Visit Provider Surgery
DX: R92.343 Mammographic extreme density, bilateral breasts (principal); N63.10 Unspecified lump in the right breast, unspecified quadrant; R92.8 Other abnormal and inconclusive findings on diagnostic imaging of breast; Z80.3 Family history of malignant neoplasm of breast
CPT/HCPCS: 77049; A9577; C8908

== ENCOUNTER 2025-02-12 08:37 | Outpatient (CLI) | payer OTHER, SELFPAY ==
--- NOTE | ~2025-02-12 | MMUS_ITS ---
EXAMINATION: MM diagnostic shnaika BI w naeem, US breast BI complete HISTORY: Follow-up palpable abnormality TECHNIQUE: Additional 3-D tomosynthesis images of the breasts were performed and synthetic 2-D images were generated. CAD analysis was submitted and interpreted. High resolution complete bilateral breas t ultrasound was performed. COMPARISON: Comparison to multiple prior studies sequentially, with oldest reviewed study dated 10/14. BREAST PARENCHYMAL COMPOSITION: Dense: The breasts are heterogeneously dense, which may obscure small masses FINDINGS: MAMMOGRAPHIC FINDINGS: There are no suspicious new masses, calcifications or architectural distortion in either breast to galindo ggest malignancy. ULTRASOUND: Complete US of all 4 quadrants of the breast/s and retroareolar region was reviewed. Right breast: There are multiple cysts of the right breast. At 12:00, 2 cm from the nipple there is a n 8 mm intramammary lymph node. At 1:00, 8 cm from the nipple, there is an oval hypoechoic 5 mm mass with low level internal echoes, parallel orientation, circumscribed margins, no internal vascularity or posterior features, likely benign. At 4:00, 4 cm from the nipple there is an oval parallel oriente d hypoechoic 6 mm mass without posterior features. There is a large cyst in the right breast at 9:00, 6 cm from the nipple measuring 1.7 cm. No discrete mass in the area of palpable concern in the right axilla. Left breast: Multiple cysts of the left breast. At 12:00, 7 cm from the nipple there is a 6 mm intram ammary lymph node. At 1:00, 6 cm from the nipple there is a 6 mm intramammary lymph node. There are n o suspicious masses in the left breast to suggest malignancy. There is a cluster of microcysts at 2:0 0, 6 cm from the nipple. IMPRESSION: 1. Probable benign right breast masses by ultrasound. No evidence for malignancy in the left breast. 2. Recommend 6 month follow-up Limited right breast ultrasound BI-RADS category 3, probably benign findings. Reviewed, dictated and finalized at location A. IMPRESSION: 1. Probable benign right breast masses by ultrasound. No evidence for malignanc y in the left breast. 2. Recommend 6 month follow-up Limited right breast ultrasound BI-RADS category 3, probably benign findings.
--- OUTSIDE RECORDS SUMMARY | 2025-02-12 08:46 | XMS_ITS | Clinical Summary ---
Author Organization [facility] Address [facility] [place] [address] Care Team Providers Care Tint Layer Name Role Phone Toney Watkins MD Primary Care Provider [phone] Allergies Active Allergy Reactions Criticality Noted Date Comments Sulfa Antibiotics Hives 08/02/2019 Medications buPROPion SR (WELLBUTRIN SR) 150 MG 12 hr tablet Take 150 mg by mouth 2 (two) times daily. 2 Active irbesartan (AVAPRO) 300 MG tablet Take 300 mg by mouth daily. 2 Active valACYclovir (VALTREX) 1 g tablet TAKE 2 TABLETS BY MOUTH EVERY 12 HOURS FOR 1 DAY NEEDED FOR FEVER BLISTER 2 Active azithromycin (ZITHROMAX Z-GABBY) 250 MG tabletIndication s:Upper respiratory tract infection, unspecified type Take 2 tablets by mouth on day one then 1 daily for four days. 6 tablet 4 Active Additional Information Patient not taking.Reported on 10/21/2024 AIRSUPRA 90-80 MCG/ACT Aerosol Use as directed 21.4 g in the mouth or throat as needed. 5 Active phentermine (ADIPEX-P) 37.5 MG tablet Take 1 tablet (37.5 mg total) by mouth every morning before breakfast. 5 Active azithromycin (ZITHROMAX) 250 MG tabletIndication s:Sore throat,Non-recur rent acute serous otitis media of left ear Take 2 tablets by mouth on day one then 1 daily for four days. 6 tablet 5 Active Active Problems Problem Noted Date Diagnosed Date Other specified glaucoma 10/21/2024 Mass of right axilla 08/03/2019 Ulnar neuropathy [...] Information Value Date Recorded Sex Assigned at Female 10/21/2024 7:17 AM CDT Legal Sex Female 8:30 PM CDT Gender Identity Not on file Sexual Orientation Not on file Last Filed Vital Signs Vital Sign Reading Time Taken Comments Blood Pressure 129/84 10/21/2024 7:17 AM CDT Pulse 94 10/21/2024 7:17 AM CDT Temperature 36.9 C (98.5 F) 10/21/2024 7:17 AM CDT Respiratory Rate 16 10/21/2024 7:17 AM CDT Oxygen Saturation 99% 10/21/2024 7:17 AM CDT Inhaled Oxygen Concentration - - Weight 72.8 kg (160 lb 6.4 oz) 10/21/2024 7:17 A M CDT Height 166.4 cm (5' 5.5) 10/21/2024 7:17 AM CDT Body Mass Index 26.29 10/21/2024 7:17 AM CDT Plan of Treatment Health Maintenance Due Date Last Done Comments Cervical Cancer Screening Pa p Smear (Age 30 to 64) Every 3 Years 1980 Colorectal Cancer Screening Colonoscopy (10 Years) 1980 Annual Physical 01/17/1983 Hepatitis C 01/17/1998 DTaP, Tdap and Td Vaccines ( 1 - Tdap) 01/17/1999 Hepatitis B Vaccines (1 of 3 - 19+ 3-dose series) 01/17/1999 HPV Vaccines (1 - 3-dose SCD M series) 01/17/2007 Cervical Cancer Screening Pa p with HPV Testing (Age 30 to 64) Every 5 Years 01/17/[address] [facility] HPV 01/17/2010 COVID-19 Vaccine (2023-2 5 season) 2024 07/16/2021, 10/11/2020, 09/18/2020 PHQ-2 (Physician [place]) 07/03/2024 Mammogram Screening 02/13/2025 02/13/2023, 10/14/2021, 07/24/2019 Meningococcal B Vaccine Aged Out No l onger eligible based on patient's age to complete this topic Meningococcal Vaccine Aged Out No mark kristina eligible based on patient's age to complete this topic Pneumococcal Vaccine: Pediatrics (0 to 5 Years) and At-Risk Patients (6 to 49 Years) Aged Out No longer eligible b ased on patient's age to complete this topic RSV Immunizations Under 20 Months Aged Out No longer eligible b ased on patient's age to complete this topic Procedures Procedure Name Priority Date/Time Associated Diagnosis Comments MG DIAG W ASHLIE BILAT DIGI STAT 02/13/2023 1:24 PM CDT Unspecified lump in the right breast, unspecified quadrant from Last 3 Months or Most Recently Relevant to Health Maintenance Results * MG DIAG W ASHLIE BILAT DIGI (02/13/2023 1:24 PM CDT) Anatomical Region Laterality Modality Breast Bilateral Mammography 02/13/2023 1:54 PM CDT Narrative 02/13/2023 1:56 PM CDT Examination: Bilateral 3D diagnostic mammogram and right breast ultrasound. [id number] Reason For Exam: lump Palpable abnormality in [...] MD, 02/13/2023 1:54 PM us Evette Trotter PRODUCTION PACKAGER MAMMO Final Resul t from Last 3 Months or Most Recently Relevant to Health Maintenance Insurance [address] [place] [address] [facility] Care Teams Tint Layer Relationship Specialty [place] [id number] [id number] PCP - General INTERNAL MEDICINE 11/29/24
--- OUTSIDE RECORDS SUMMARY | 2025-02-12 08:46 | XMS_ITS | Clinical Summary ---
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 Gender Identity Not on file Sexual Orientation [...] 8:39 AM CDT Height 163.8 cm (5' 4.5) 02/24/2024 8:39 AM CDT Body Mass Index 22.81 02/24/2024 8:39 AM CDT Plan of Treatment Health Maintenance Due Date Last Done Comments Cervical Cancer Screening 1980 Colon Cancer Screening-Colonoscopy 1980 Depression Screening 1980 Hepatitis C Screening 1980 DTaP/Tdap/Td Vaccine (1 - Tdap) 01/17/1991 Varicella Vaccines (1 of 2 - 13+ 2-dose series) 01/17/1993 Hepatitis B Screening 01/17/1998 Regular Well Visit/Exam 18-64 01/17/1998 HPV Vaccines (1 - 3-dose SCDM series) 01/17/2007 Breast Cancer Screening-Mammogram 02/14/2024 02/13/2023, 02/13/2023, 10/14/2021, Additional history exists Covid-19 Vaccine ( season) 2024 07/16/2021, 10/11/2020, 09/18/2020 Influenza Vaccine (#1) 2025 Pneumococcal vaccine <65 Aged Out No longer eligible based on patient's age to complete this topic Insurance [facility] CMR Care Teams Associate Professor Plant Pathology Relationship Specialty Start Date End Date Unknown, Notinfile PCP - General 02/24/24
--- OUTSIDE RECORDS SUMMARY | 2025-02-12 08:46 | XMS_ITS | Clinical Summary ---
Author Organization [facility] Address [address] [place] [address] Phone Care Team Providers Care Special Education Associate Name Role Phone Ayaan Lucio MD Primary Care Provider [phone] Allergies No known active allergies Medications cyanocobalamin [...] Comments Blood Pressure 110/80 07/23/2015 2:15 PM VICE PRESIDENT MARKETING & DEVELOPMENT Pulse 73 07/23/2015 2:15 PM VICE PRESIDENT MARKETING & DEVELOPMENT Temperature 36.1 C (97 F) 07/23/2015 2:15 PM VICE PRESIDENT MARKETING & DEVELOPMENT Respiratory Rate 16 07/23/2015 2:15 PM VICE PRESIDENT MARKETING & DEVELOPMENT Oxygen Saturation 99% 07/23/2015 2:15 PM VICE PRESIDENT MARKETING & DEVELOPMENT Inhaled Oxygen Concentration - - Weight 70.8 kg (156 lb) 07/16/2015 3:13 PM VICE PRESIDENT MARKETING & DEVELOPMENT Height 165.1 cm (5' 5) 07/16/2015 3:13 PM VICE PRESIDENT MARKETING & DEVELOPMENT Body Mass Index 25.96 07/16/2015 3:13 PM VICE PRESIDENT MARKETING & DEVELOPMENT Plan of Treatment Health Maintenance Due Date Last Done Comments Hepatitis C Virus (HCV) Screening 1980 TdaP Immunization 1980 Hepatitis B Immunization (1 of 3 - 19+ 3-dose series) 01/17/1999 Human Papillomavirus (HPV) Immunization (1 - 3-dose SCDM series) 01/17/2007 SARS-COV-2 Immunization ( season) 2024 07/16/2021, 10/11/2020, 09/18/2020 Cologuard 01/17/2025 Colonoscopy 01/17/2025 Colorectal Cancer Screening 01/17/2025 Immunochemical Fecal Occult Blood 01/17/2025 Influenza Immunization (#1) 2025 Respiratory Syncytial Virus (RSV) Immunization (Adult) (1 [...] age to complete this topic Care Teams Special Education Associate Relationship Specialty Start Date End Date Ayaan Lucio MD [address] [place] [id number] PCP - General Internal Medicine 07/14/15
== END 2025-02-12 08:38 | disposition home or self-care (01) ==
LOC: ANHIMG 08:42
PROVIDERS: PCP Physician Assistant Medical; Visit Provider Surgery
DX: R92.8 Other abnormal and inconclusive findings on diagnostic imaging of breast (principal); R92.343 Mammographic extreme density, bilateral breasts; Z12.39 Encounter for other screening for malignant neoplasm of breast
CPT/HCPCS: 76641; 77062; 77066; G0279